=== PATIENT | male | born 1955 | race Two or more races ===

== ENCOUNTER → 2024-12-30 14:43 | Outpatient (REF) | payer MEDICARE, OTHER, SELFPAY | LOC: RAD 14:43 | PROVIDERS: ATTENDING PHYSICIAN Internal Medicine Gastroenterology; FAMILY PHYSICIAN Internal Medicine | DX: K51.90 Ulcerative colitis, unspecified, without complications (principal) | CPT/HCPCS: 76700 ==

== ENCOUNTER → 2025-01-19 11:30 | Outpatient (REF) | payer MEDICARE, OTHER, SELFPAY | LOC: MRI 3T 11:30 | PROVIDERS: ATTENDING PHYSICIAN Internal Medicine Gastroenterology | DX: K60.30 Anal fistula, unspecified (principal) | CPT/HCPCS: 72197; A9575 ==

== ENCOUNTER 2025-03-21 07:46 | Emergency (ER) | payer MEDICARE, OTHER, SELFPAY ==
[2025-03-21 07:57] VITALS: BP 154/92
--- NOTE | 2025-03-21 09:17 | ED.MUSCINJ ---
HPI-Injury
General
Chief Complaint: Musculo-Skeletal Complaint
Source: patient
Exam Limitations: none
Time Seen by Provider: 03/21/25 09:10
History of Present Illness-Injury
Initial Injury comments:
70-year-old male with history of gout presents complaining of increasing pain to the right foot starting 3 days ago and getting worse. He states this feels like his gout in the past. No known injury. He denies fever. He has had this in the past
and has had relief with methylprednisolone. No other complaints at this time.
Past History
Past History
ED Past Medical History: HTN, Hypercholesterolemia, NIDDM and Other
Social History
Tobacco: Non-smoker
Living: with family
Employment: Employed
Phy Exam
Physical Exam
Physical Exam:
General: Well-appearing male no acute distress
Musculoskeletal exam: Right foot slightly swollen centered around the first MTP joint and tender. There is soft tissue swelling that spreads to the dorsum of the foot but no associated erythema. No fluctuance
Vascular: 2+ DP pulse right foot
Neurologic exam sensation right foot
MDM/Problems Addressed
Differential Diagnosis Includes:
Right foot pain atraumatic in nature likely gout. No sign of cellulitis. He has good vascular supply to his foot I do not suspect ischemic discomfort.
Will start methylprednisolone as he has had in the past. Stable for discharge
*Critical Care Note
Total Time (30-74mins, 75-104mins- exclusive of procedures): Not Applicable
ED Attending Note
-
Portions of this chart may have been created with voice recognition software.� Occasional wrong word or��sound alike� substitutions may have occurred due to the inherent limitations of voice recognition software.
Discharge Plan
Departure
Patient Disposition: Home (Routine Discharge)
Date of Disposition: 03/21/25
Time of Disposition: 09:18
Patient with high blood pressure during this ER visit?: No
Discharge Problem:
Gout attack
Prescriptions:
New
methylprednisolone [Medrol (Apollo)] 4 mg tablets,dose pack
4 mg PO DAILY Qty: 21 0RF
No Action
tramadol 50 MG tablet
50 mg PO Q6HPRN PRN (Reason: pain) Qty: 20 0RF
methylprednisolone [Medrol (Apollo)] 4 MG tablets,dose pack
4 tab PO . DIRECT Qty: 1 0RF
Activity Restrictions/Additional Instructions:
You may elevate for swelling. Use your crutches as needed for support. Take prednisone as directed. As discussed this is likely a gout flare. Return if needed otherwise
Interventions
Interventions:
*Risk Screen - Suicide Last Done: 03/21/25 07:57
*General Assessment Last Done: 03/21/25 07:57
*Neglect/Abuse Screening Last Done: 03/21/25 07:57
Discharge Date and Time
Print Language: WELSH
== END 2025-03-21 09:46 | disposition home or self-care (01) ==
LOC: EMR 07:46
PROVIDERS: EMERGENCY PHYSICIAN Emergency Medicine; FAMILY PHYSICIAN Internal Medicine
DX: M10.9 Gout, unspecified (principal); M79.671 Pain in right foot; M79.89 Other specified soft tissue disorders; E11.9 Type 2 diabetes mellitus without complications; E78.00 Pure hypercholesterolemia, unspecified; I10 Essential (primary) hypertension
CPT/HCPCS: 99283

== ENCOUNTER 2025-03-30 09:59 | Emergency (ER) | payer MEDICARE, OTHER, SELFPAY ==
[2025-03-30 10:01] VITALS: BP 159/115
--- NOTE | 2025-03-30 11:39 | ED.GENMED ---
History of Present Illness
General
Chief Complaint: Musculo-Skeletal Complaint
Source: patient
Exam Limitations: none
Time Seen by Provider: 03/30/25 10:31
Nursing documentation reviewed up to this point in time: agreed with
History of Present Illness
History of Present Illness:
70-year-old male presents to the emergency room for evaluation of right fifth toe pain. Symptoms started over a week ago and have been constant since that time. Pain is localized to the base of the fifth toe. Worse with movement. Similar to
prior gout flares. He was seen in this emergency room 03/21/2025 and was prescribed a Medrol Dosepak. He says that his symptoms slightly improved but did not resolve which prompted him to return to the emergency room. He denies any fevers or
chills. Denies any other joint pains or any other complaints.
Past History
Past History
ED Past Medical History: HTN, Hypercholesterolemia, NIDDM and Other
Social History
Tobacco: Non-smoker
Living: with family
Employment: Employed
Review of Systems
Review of Systems
All Other Systems: ROS reviewed and negative except as documented in HPI and ROS
Constitutional: Denies fever
Musculoskeletal: Reports joint pain (Fifth toe pain on the right)
Phy Exam
Physical Exam
Physical Exam:
General: Well appearing and non-toxic
HEENT: protecting airway
Neck: appears supple
CV: No evidence of cyanosis
Resp: No accessory muscle use
Abd: Non-distended
Extremities: Patient has localized erythema and tenderness over the right fifth MTP joint; he has pain with range of motion of the right fifth toe; no extension of the erythema beyond the joint; good strong pulses popliteal, DP, PT right lower
extremity; left foot appears normal
Neuro: Alert
Psych: Normal affect
Skin: Intact
Scores
Heart Failure Risk
Heart Failure Risk Score: Not Applicable
Heart Score for Chest Pain Patients
STEMI patient?: Not applicable
Withdrawal Assessment of Alcohol
Withdrawal Assessment Completed?: Not applicable
Course
Orders/Labs/Results
Orders:
Orders
03/30/25 10:03
Foot, Right 3 View [CR Foot - Right Min 3 Views] Urgent
Comment:
Reason For Exam: right foot pain
03/30/25 11:33
Colchicine 1.2 mg PO NOW STA
03/30/25 11:34
Prednisone [Deltasone] 40 mg PO NOW STA
Vital Signs
Initial and Last Documented VS:
Initial Vital Signs
Temp Pulse Resp BP Pulse Ox
36.7 C 125 18 159/115 99
03/30/25 10:01 03/30/25 10:01 03/30/25 10:01 03/30/25 10:01 03/30/25 10:01
Last Documented Vital Signs
Temp Pulse Resp BP Pulse Ox
36.7 C 125 18 159/115 99
03/30/25 10:01 03/30/25 10:01 03/30/25 10:01 03/30/25 10:01 03/30/25 10:01
MDM/Problems Addressed
Differential Diagnosis Includes:
Gout flare
MDM/Problems Addressed:
70-year-old male presents for evaluation of persistent redness and pain in his right fifth toe�has history of gout, was seen for a gout flare a little over a week ago and prescribed Medrol Dosepak. Symptoms improved but did not resolve and so he
returned to the emergency room. X-ray of the foot shows no acute abnormalities here. I do suspect this is a gout flare. He has no fever to suggest that this is septic arthritis, symptoms are very localized which goes against cellulitis. Will
start on colchicine and prednisone. Discharged with PCP referral.
Chronic conditions affecting care:
Gout
*Radiology
Radiology exam reviewed: radiology read reviewed
*Pulse Oximetry
Patient hypoxic: no
*Critical Care Note
Total Time (30-74mins, 75-104mins- exclusive of procedures): Not Applicable
Data Reviewed
Source: patient and records
ED Attending Note
-
Portions of this chart may have been created with voice recognition software.� Occasional wrong word or��sound alike� substitutions may have occurred due to the inherent limitations of voice recognition software.
Discharge Plan
Departure
Patient Disposition: Home (Routine Discharge)
Date of Disposition: 03/30/25
Time of Disposition: 11:34
Patient with high blood pressure during this ER visit?: Yes
Discharge Problem:
Gout flare
Instructions: Gout
Prescriptions:
New
colchicine 0.6 mg tablet
0.6 mg PO BID Qty: 60 0RF
Rx Instructions:
Take 1 tablet twice a day until your gout flare resolves
prednisone 10 mg Tablet
See Rx Instructions .ROUTE .COMPLEX Qty: 45 0RF
Rx Instructions:
Take By Mouth:
50 mg daily x3 days, 40 mg daily x3 days,
30 mg daily x3 days, 20 mg daily x3 days,
10 mg daily x3 days
No Action
tramadol 50 MG tablet
50 mg PO Q6HPRN PRN (Reason: pain) Qty: 20 0RF
methylprednisolone [Medrol (Apollo)] 4 MG tablets,dose pack
4 tab PO . DIRECT Qty: 1 0RF
methylprednisolone [Medrol (Apollo)] 4 mg tablets,dose pack
4 mg PO DAILY Qty: 21 0RF
Referrals:
Ion Morel MD [Family Provider] - Call in 1-3 days for appt
Activity Restrictions/Additional Instructions:
Thank you for visiting the Emergency Department at [facility].
1. Please schedule a follow up appointment as directed. Call first thing tomorrow morning to make an appointment.
2. If indicated, please take your medications as instructed and indicated on discharge paperwork.
3. If any of your symptoms do not improve, or persist, or become more severe within 6-12 hours, please return to the emergency department for further care.
4. Please return to the emergency department if you develop a headache, neck pain/stiffness, fever greater than 100.4F, chest pain, shortness of breath, persistent nausea, vomiting, slurred speech, difficulty walking, numbness/tingling, weakness,
signs of infection or any other symptoms that are worrisome to you.
Please call [phone] if you have any questions.
Interventions
Interventions:
*Risk Screen - Suicide Last Done: 03/30/25 10:01
*General Assessment Last Done: 03/30/25 10:01
*Neglect/Abuse Screening Last Done: 03/30/25 10:01
*ED- Fall Risk Assessment Last Done: 03/30/25 10:01
*ED COVID-19 Vaccine History Last Done: 03/30/25 10:01
ED-Musculoskeletal Assessment Last Done: 03/30/25 11:15
Discharge Date and Time
Print Language: SINHALA
[2025-03-30] MEDS: COLCHICINE 1.2 MG PO (11:41)
[2025-03-30] MEDS: DELTASONE 40 MG PO (11:41)
[2025-03-30 11:48] VITALS: BP 160/97
== END 2025-03-30 11:58 | disposition home or self-care (01) ==
LOC: EMR 09:59
PROVIDERS: EMERGENCY PHYSICIAN Emergency Medicine; FAMILY PHYSICIAN Internal Medicine
DX: M10.9 Gout, unspecified (principal); I10 Essential (primary) hypertension; E78.00 Pure hypercholesterolemia, unspecified; E11.9 Type 2 diabetes mellitus without complications
CPT/HCPCS: 99283; 73630